=== PATIENT | female | born 1975 | race Caucasian/White ===

== ENCOUNTER 2023-11-23 21:31 | Emergency (ER) | payer SELFPAY ==
[~2023-11-23] VITALS: Ht 165.1 cm; Wt 79.4 kg
[2023-11-23 22:15] VITALS: BP 121/92; PULSE 82; RESP 16; TEMP 97.2; O2SAT 100
[2023-11-24] MEDS ORDERED: IBUP-2213 PO (00:04)
== END 2023-11-24 00:09 | disposition home or self-care (01) ==
LOC: MED 21:31
DX: S80.02XA Contusion of left knee, initial encounter (principal); J45.909 Unspecified asthma, uncomplicated; Z79.899 Other long term (current) drug therapy; Z90.49 Acquired absence of other specified parts of digestive tract; W01.0XXA Fall on same level from slipping, tripping and stumbling without subsequent striking against object, initial encounter; Y93.89 Activity, other specified; Y92.89 Other specified places as the place of occurrence of the external cause; Y99.8 Other external cause status
CPT/HCPCS: 73562; 99283; Q0092